=== PATIENT | female | born 1930 | race Caucasian/White ===

== ENCOUNTER 2018-07-19 06:04 | Day surgery (SDC) | payer MEDICARE, MEDICAID ==
[2016-04-27 10:39] VITALS: BMI 18.9
[2018-07-19 07:13] VITALS: TEMP 97.9
[2018-07-19] MEDS ORDERED: Propofol 10 mg/ml Inj (20 ML) ONE (07:40)
[2018-07-19] MEDS ORDERED: Lidocaine 2% PF (10 ml) Amp ONE (07:46)
--- NOTE | 2018-07-19 07:58 | CP.PCM.PN ---
Subjective - Date & Time of Evaluation Date of Evaluation: 07/19/18 Time of Evaluation: 07:54 - Subjective Subjective: Podiatry Progress note for Dr. Rock 88 year old female with PMH of HTN, hypercholesterolemia, hypothryroid was seen in [facility] for pre-operative evaluation for left 2nd digit arthroplasty and 3rd digit partial ostetcomy with Dr. Rock. Patient admits to a lot of pain on her left 2nd and 3rd digits. NPO status confirmed. Patient is NAD and AAOx3, denies n/v/f/c/sob/cp. Objective - Vital Signs/Intake and Output Vital Signs (last 24 hours): Temp Pulse Resp BP Pulse Ox 97.9 F 72 18 201/80 H 99 07/19/18 06:20 07/19/18 06:20 07/19/18 06:20 07/19/18 06:20 07/19/18 06:20 - Constitutional Appears: Well, Non-toxic, No Acute Distress - Extremities Exam Additional comments: Vasc :DP and PT pulses palpable 1/4 b/l. CFT < 3 seconds to all digits b/l. Skin temperature warm to warm from proximal to distal b/l. Neuro: Gross sensation diminished b/l Derm: Skin is well hydrated. Ulcerative lesion noted to the left 2nd and 3rd digits Ortho Contracted digits 2,3 on the left - Neurological Exam Neurological Exam: Alert, Awake, Oriented x3 - Psychiatric Exam Psychiatric exam: Normal Affect, Normal Mood Assessment and Plan - Assessment and Plan (Free Text) Assessment: 88 year old female with contracted digits 2,3 on the left Plan: Pt was seen and examined in [facility] Pt NPO status was confirmed All Pre-op testing and clearance was in the chart Pt has exhausted all conservative treatment at this time and is opting for surgical intervention Pt was explained procedure and post-operative course All pt's questions were answered to satisfaction No guarantees were made Pt understands all risks, benefits and complications of procedure Pt will follow-up with Dr. Rock
[2018-07-19] MEDS ORDERED: Bupivacaine 0.5% 50 ML IJ ONE (08:01)
[2018-07-19] MEDS ORDERED: Propofol 10 mg/ml 1,000 MG/100 ML VIAL ONE (08:02)
[2018-07-19] MEDS ORDERED: CeFAZolin 1 gm in NS 100ml IVPB ONE (08:05)
[2018-07-19] MEDS ORDERED: Bupivacaine 0.5% Inj(30mL) IJ ONE (08:20)
[2018-07-19] MEDS ORDERED: Labetalol 5 mg/ml Inj 20ML ONE ×2 (08:41→10:27)
[2018-07-19] MEDS ORDERED: Lactated Ringer's 1,000 ML IV SCH (09:15)
[2018-07-19] MEDS: Labetalol 5 mg/ml Inj 20ML IVP PRN ×3 (10:05→10:35)
[2018-07-19 12:34] VITALS: BP 160/62; PULSE 68; RESP 18; O2SAT 98
--- NOTE | 2018-07-22 22:51 | OP ---
PROCEDURE DATE: 07/19/2018 PREOPERATIVE DIAGNOSES: 1. Left foot second contracted digit. 2. Left foot third contracted digit. POSTOPERATIVE DIAGNOSES: 1. Left foot second contracted digit. 2. Left foot third contracted digit. PROCEDURES PERFORMED: 1. Left foot second digit arthroplasty. 2. Left foot second tenotomy and capsulotomy. 3. Left foot third digit partial ostectomy. SURGEON: Oscar Rock DPM [employer]: Geovany Rock DPM; Luz Hubbard DPM, PGY-3; Merlyn Hayes DPM, PGY-1. ANESTHESIA ADMINISTERED BY: Dr. Childress. TYPE OF ANESTHESIA: MAC IV sedation and local injection. INDICATIONS: The patient is an 88-year-old female with the above-mentioned diagnoses. The patient is being treated by Dr. Rock in the office on an outpatient basis, where she has exhausted multiple forms of conservative treatments. The patient seeks surgical intervention at this time. All risks, benefits, and possible complications of proposed procedure were explained to the patient at length, the patient verbalized understanding and wishes to proceed. All questions were answered. No guarantees were given nor implied. Consent was signed and n.p.o. status confirmed prior to taking the patient to the operating room. OPERATIVE PROCEDURE: The patient was brought into the operating room and placed on the operating room table in a supine position. A well-padded pneumatic ankle tourniquet was applied to the patient's left ankle in the sub-malleolar position. Once IV sedation was achieved, local injection consisting of 20 mg of 0.5% Marcaine plain was given in a local block fashion to the patient's left foot. Once local anesthesia was achieved, the left foot was then prepped and draped in usual sterile manner and the procedure began. PROCEDURE #1: Left foot second digit arthroplasty: Attention was directed to the dorsal aspect of the left foot second digit where a linear longitudinal incision was made on the lateral aspect of the proximal interphalangeal joint of the second digit. The incision was deepened through the subcutaneous tissue with care being taken to identify and retract all vital neurovascular structures. All bleeders were cauterized and ligated as necessary. At this time, a linear capsulotomy was performed to the proximal interphalangeal joint of the second digit of the left foot. Utilizing oscillating saw, the lateral aspect of the proximal phalanx, which was hypertrophied, was resected and passed off of operative field. The surgical site was irrigated with copious amounts of normal sterile saline. The subcutaneous tissue was then reapproximated with #3-0 Vicryl and the skin was reapproximated with #4-0 nylon. PROCEDURE #2: Left foot second digit tenotomy and capsulotomy. Attention was brought to the dorsal aspect of the left second MPJ where using a #61 blade, an approximately 0.5 cm incision was made and carried deep using sharp dissection, taking care to retract all vital neurovascular structures. All bleeders were cauterized and ligated as necessary. At this time, the extensor tendon was noted; it was sharply released using a #61 blade. At this time, correction was noted to be excellent for the rest of the toe. The surgical site was irrigated with copious amounts of normal sterile saline and the skin was reapproximated with #4-0 nylon. PROCEDURE #3: Left foot third digit partial ostectomy. Attention was brought to the dorsal aspect of the third digit on the left foot where a linear longitudinal incision was made overlying the proximal interphalangeal joint of the third digit. The incision was deepened through the subcutaneous tissue and care being taken to identify and retract all vital neurovascular structures. All bleeders were cauterized and ligated as necessary. At this time, a transverse tenotomy and capsulotomy was performed to the proximal interphalangeal joint of the third digit of the left foot. The head of the proximal phalanx was then freed of all of its capsular and ligamentous attachment and utilizing a sagittal saw, the head of the proximal phalanx was resected and passed off the operative field. The surgical site was then irrigated with copious amounts of normal sterile saline. The tendon was then reapproximated with #3-0 Vicryl. The skin was reapproximated with #4-0 nylon. Postoperative dressings included Betadine, Adaptic, 4 x 4s, Alka, and lastly . POSTOPERATIVE CONDITION: The patient tolerated the anesthesia and the procedure well with no apparent complications or complaints. The patient was brought from the operating room with vital signs stable and neurovascular structures intact. The patient will follow up with Dr. Rock's office on an outpatient basis. Luz Hubbard DPM Oscar Rock DPM [facility] # [id number]
== END 2018-07-19 12:50 | disposition home or self-care (01) ==
LOC: SDS 06:04
PROVIDERS: ATTEND Podiatrist Foot & Ankle Surgery
DX: M20.42 Other hammer toe(s) (acquired), left foot (principal); M86.172 Other acute osteomyelitis, left ankle and foot; M24.575 Contracture, left foot; I10 Essential (primary) hypertension; E78.00 Pure hypercholesterolemia, unspecified; E03.9 Hypothyroidism, unspecified
CPT/HCPCS: 28124; 28285; 88304; 88311; J0690; J1100; J1885; J2001; J2704 ×2; J3010; J7120 ×2